=== PATIENT | male | born 1990 | race Caucasian/White ===

== ENCOUNTER 2017-11-30 02:03 | Emergency (ER) | payer OTHER ==
--- NOTE | 2017-11-30 02:07 | EDM.PDOC ---
ED HPI GENERAL MEDICAL PROBLEM - General Chief Complaint: Eye Problems Stated Complaint: SOMETHING IN LEFT EYE Time Seen by Provider: 11/30/17 02:06 Source of Information: Reports: Patient History Limitations: Reports: No Limitations - History of Present Illness INITIAL COMMENTS - FREE TEXT/NARRATIVE: HISTORY AND PHYSICAL: History of present illness: 26-year-old male presenting to emergency department with chief complaint of left eye pain starting in at 6:30 PM yesterday 11/29/17. Patient states that he was on a worksite when getting back into his vehicle felt like he had something in his eye. States that he was wearing safety glasses and took them off and began rubbing his eye. This did not seem to help so he squirted water in his eye from his drinking bottle and proceeded to go to an eyewash station. States that he flushed for approximately 5 minutes at eyewash station and then went to their safety individual who also washed his eye with a saline rinse. States that at that time his construction safety consultant felt like there had been a "rock" that was dislodged and it may have scratched his eye. Patient felt much better after the saline rinse and then approximately 1 hour and a half ago when laying down in bed his eye began to bother him again. He denies any significant loss of vision but states it is blurry secondary to watering. He's never had problems with his eye before. He denies any other injuries. He takes no medications and has no known allergies. Visual examination revealed no obvious foreign objects in the left eye. I did do a fluorescein stain which was unremarkable. We did do a Refugio lens flush out. I did call Dr. Couch, county sheriff, who was briefed on the patient will see him tomorrow morning at 10 AM at [place]. Review of systems: As per history of present illness and below otherwise all systems reviewed and negative. Past medical history: As per history of present illness and as reviewed below otherwise noncontributory. Surgical history: As per history of present illness and as reviewed below otherwise noncontributory. Social history: No reported history of drug or alcohol abuse. Family history: As per history of present illness and as reviewed below otherwise noncontributory. Physical exam: HEENT: Atraumatic, normocephalic, pupils reactive, injected, or conjunctival pallor or scleral icterus, mucous membranes moist, throat clear, neck supple, nontender, trachea midline. Lungs: Clear to auscultation, breath sounds equal bilaterally, chest nontender. Heart: S1S2, regular, negative for clicks, rubs, or JVD. Abdomen: Soft, nondistended, nontender. Negative for masses or hepatosplenomegaly. Negative for costovertebral tenderness. Pelvis: Stable nontender. Genitourinary: Deferred. Rectal: Deferred. Extremities: Atraumatic, negative for cords or calf pain. Neurovascular unremarkable. Neuro: Awake, alert, oriented. Cranial nerves II through XII unremarkable. Cerebellum unremarkable. Motor and sensory unremarkable throughout. Exam nonfocal. Diagnostics: Fluorescein stain Therapeutics: Refugio lens flush Impression: Left corneal abrasion Plan: Please see H&P. No obvious findings on fluorescein as well as visual examination. Patient will follow-up with Dr. couch, county sheriff, tomorrow [facility] at 10 AM. All information was given including Dr. Couch's cell phone number. He will meet him at door #2. Instructed to return to emergency department if he has any new or worsening symptoms. Definitive disposition and diagnosis as appropriate pending reevaluation and review of above. - Related Data Allergies Allergy/AdvReac Type Severity Reaction Status Date / Time No Known Allergies Allergy Verified 11/30/17 02:28 Home Meds: Home Meds . [No Known Home Meds] 11/30/17 [History] ED ROS GENERAL - Review of Systems Review Of Systems: ROS reveals no pertinent complaints other than HPI. ED EXAM GENERAL W FULL EYE - Physical Exam Exam: See Below Course - Vital Signs Last Recorded V/S: Last Vital Signs Temp 98 F 11/30/17 02:25 Pulse 88 11/30/17 02:25 Resp 18 11/30/17 02:25 BP 140/86 11/30/17 02:25 Pulse Ox 98 11/30/17 02:25 - Orders/Labs/Meds Meds: Medications Discontinued Medications Generic Name Dose Route Start Last Admin Trade Name Freq PRN Reason Stop Dose Admin Proparacaine HCl 1 ml 11/30/17 02:17 11/30/17 02:31 Proparacaine 0.5% Ophth Soln EYELF 11/30/17 02:18 2 drop NOW STA Administration Departure - Departure Time of Disposition: 03:19 Disposition: Home, Self-Care 01 Condition: Good Clinical Impression: Corneal abrasion Qualifiers: Encounter type: initial encounter Laterality: left Qualified Code(s): S05.02XA - Injury of conjunctiva and corneal abrasion without foreign body, left eye, initial encounter - Discharge Information Referrals: PCP,None [Primary Care Provider] - Forms: ED Department Discharge Additional Instructions: My general discharge The following information is given to patients seen in the emergency department who are being discharged to home. This information is to outline your options for follow-up care. We provide all patients seen in our emergency department with a follow-up referral. The need for follow-up, as well as the timing and circumstances, are variable depending upon the specifics of your emergency department visit. If you don't have a primary care physician on staff, we will provide you with a referral. We always advise you to contact your personal physician following an emergency department visit to inform them of the circumstance of the visit and for follow-up with them and/or the need for any referrals to a consulting specialist. The emergency department will also refer you to a specialist when appropriate. This referral assures that you have the opportunity for follow-up care with a specialist. All of these measure are taken in an effort to provide you with optimal care, which includes your follow-up. Under all circumstances we always encourage you to contact your private physician who remains a resource for coordinating your care. When calling for follow-up care, please make the office aware that this follow-up is from your recent emergency room visit. If for any reason you are refused follow-up, please contact the [facility] Emergency Department at and asked to speak to the emergency department charge nurse. [address] [address] Please follow-up with Dr. Couch, county sheriff, tomorrow at [place] door [address] at 10 AM. His cell phone number is [phone]. Try to refrain from rubbing eye. Return to emergency department if any new or worsening symptoms.
[2017-11-30] MEDS ORDERED: Proparacaine 0.5% Ophth Soln 15 ML Bottle EYELF STA (02:17)
== END 2017-11-30 03:49 | disposition home or self-care (01) ==
LOC: MW.ED 02:03
DX: S05.02XA Injury of conjunctiva and corneal abrasion without foreign body, left eye, initial encounter (principal); W45.8XXA Other foreign body or object entering through skin, initial encounter
CPT/HCPCS: 99283